=== PATIENT | male | born 1960 | race Caucasian/White ===

== ENCOUNTER 2016-12-25 08:23 | Outpatient (CLI) | payer OTHER ==
--- NOTE | 2016-12-25 11:24 | RAD ---
LEFT FOOT 3 VIEWS: HISTORY: Left-sided foot pain. COMPARISON: None. FINDINGS: No acute fracture or malalignment. Moderate-sized plantar and dorsal calcaneal spurs. Lisfranc interval is maintained. Mild edema of the forefoot. IMPRESSION: 1. Mild edema of the forefoot without acute fracture or malalignment. 2. Possible ulcer along the lateral aspect of the great toe at the level of the distal phalanx. Cl inical correlation advised. 3. Moderate-sized dorsal and plantar calcaneal spurs. 4. Mild mid foot degenerative disease. POS: [facility]
--- NOTE | 2016-12-25 14:24 | ULT ---
ABDOMINAL ULTRASOUND HISTORY: Cirrhosis. Hepatitis C. TECHNIQUE: Real-time images of the liver were performed. FINDINGS: These show a normal appearing gallbladder. The common duct is 5 mm. The technologist reports a neg ative ultrasound Gill sign. The liver parenchyma is of increased echogenicity and measures approx imately 16 cm in length. The pancreas is obscured. The right kidney is normal in size and not obst ructed. IMPRESSION: 1. Slightly heterogeneous appearance to the liver, suggesting some fatty change. 2. No evidence of gallstones. 3. The common duct is normal in caliber, at 5 mm. POS: [facility]
== END 2016-12-25 08:24 | disposition home or self-care (01) ==
LOC: NAV ULT 08:23
PROVIDERS: ATTEND Internal Medicine
DX: K74.60 Unspecified cirrhosis of liver (principal); M19.072 Primary osteoarthritis, left ankle and foot; M77.32 Calcaneal spur, left foot; M79.672 Pain in left foot; R60.9 Edema, unspecified
CPT/HCPCS: 76705

== ENCOUNTER 2017-01-24 08:44 | Outpatient (CLI) | payer OTHER ==
[2017-01-24 09:58] LABS: ALT (SGPT) 173 U/L (8-55); AST (SGOT) 137 U/L (5-34); Albumin 3.8 g/dL (3.5-5.0); Alkaline Phosphatase 86 U/L (40-150); Anion Gap 12 mmol/L (10-20); BUN (Urea Nitrogen) 15 mg/dL (8.4-25.7); Bilirubin, Total 0.7 mg/dL (0.2-1.2); Calc. Creatinine Clearance 0 mL/min (70-130); Calcium 9.1 mg/dL (7.8-10.44); Carbon Dioxide 25 mmol/L (22-29); Cardiac Risk 3.4 (Less than 4.5); Chloride 105 mmol/L (98-107); Cholesterol 147 mg/dl (< 200 Desired); Estimated GFR-MDRD 86; Globulin 4.5 g/dL (2.4-3.5); Glucose 109 mg/dL (70-105); HDL Cholesterol 43 mg/dL (>60 Neg Risk); LDL Cholesterol, Calculated 84 mg/dL; Potassium 3.8 mmol/L (3.5-5.1); Protein, Total 8.3 g/dL (6.0-8.3); Sodium 138 mmol/L (136-145); Triglycerides 99 mg/dL (Less than 150)
[2017-01-24 10:32] LABS: Clarity Clear (Clear)
[2017-01-24 10:33] LABS: Bilirubin Negative (Negative); Blood, Urine Negative (Negative); Glucose, Urine (Dipstick) Negative (Negative); Leukocyte Negative (Negative); Nitrite Negative (Negative); Protein, Urine (Dipstick) Negative (Neg-Trace); Urobilinogen 0.2 mg/dL (0.2-1.0)
[2017-01-24 10:44] LABS: Bacteria/HPF Rare-Few HPF (None Seen); RBC/HPF 0-3 HPF (0-3); Squamous Epithelial 0-3 HPF (0-3); WBC/HPF 0-3 HPF (0-3)
[2017-01-24 11:10] LABS: #Basophils 0.1 thou/uL (0.0-0.2); #Eosinphils 0.2 thou/uL (0.0-0.7); #Lymphocytes 1.7 thou/uL (1.20-3.40); #Monocytes 0.4 thou/uL (0.11-0.59); #Neutrophils 2.6 thou/uL (1.40-6.50); %Basophils 1.3 % (0.0-1.0); %Eosinophils 3.2 % (0.0-10.0); %Monocytes 8.4 % (0.0-10.0); %Neutrophils 53.2 % (42.0-75.0); Hemoglobin 15.2 g/dL (14.0-18.0); Mean Corpuscular HGB CONC 33.3 g/dL (32.0-36.0); Mean Corpuscular Hemoglobin 28.6 pg (27.0-31.0); Mean Corpuscular Volume 86.1 fl (80.0-94.0); Mean Platelet Volume 11.2 fL (7.4-10.4); Platelet Count 105 thou/uL (130-400); Red Blood Cell (RBC) Count 5.31 mill/uL (4.70-6.10); White Blood Cell (WBC) Count 4.9 thou/uL (4.8-10.8)
[2017-01-24 11:11] LABS: PLT Morphology Comment Appears Decreased
== END 2017-01-24 08:45 | disposition home or self-care (01) ==
LOC: NAV LAB 08:44
PROVIDERS: ATTEND Internal Medicine
DX: E03.9 Hypothyroidism, unspecified (principal); I10 Essential (primary) hypertension; R94.5 Abnormal results of liver function studies; R74.8 Abnormal levels of other serum enzymes
CPT/HCPCS: 36415; 80053; 80061; 81001; 82105; 84443; 85025; 87522